=== PATIENT | female | born 1945 | race Caucasian/White ===

== ENCOUNTER → 2021-03-02 | Outpatient (CLI) | payer MEDICARE, OTHER | LOC: KOH-I 13:43 | DX: D72.819 Decreased white blood cell count, unspecified (principal); N28.9 Disorder of kidney and ureter, unspecified; N20.0 Calculus of kidney; L98.8 Other specified disorders of the skin and subcutaneous tissue | CPT/HCPCS: 74176 ==

== ENCOUNTER → 2022-02-04 | Outpatient (CLI) | payer MEDICARE, OTHER | LOC: US 09:56 | DX: N64.4 Mastodynia (principal) | CPT/HCPCS: 76641-LT ==

== ENCOUNTER 2022-05-19 12:57 | Inpatient (IN) | payer MEDICARE, OTHER ==
[~2022-05-19] VITALS: Ht 165.1 cm; Wt 54.4 kg
[2022-05-19 13:37] LABS: HEMOGLOBIN 8.3 gm/dl (12.3-15.3); RED BLOOD COUNT 2.83 M/UL (4.00-5.10); WHITE BLOOD COUNT 8.2 K/UL (4.5-11.0)
[2022-05-19] MEDS ORDERED: CARBIDOPA-LEVO1 EA14 PO (16:29)
[2022-05-19] MEDS ORDERED: MECLIZINE HCL12.5 MG PO (16:29)
[2022-05-19] MEDS ORDERED: FENOFIBRATE160 MG PO (16:30)
[2022-05-19] MEDS ORDERED: CYANOCOBAL1000 MCG/1 INJ (16:31)
[2022-05-19] MEDS ORDERED: AMLODIPINE BESYL5 MG PO (16:31)
[2022-05-19] MEDS ORDERED: FLONASE 0.05% N16 GM (16:35)
[2022-05-19] MEDS ORDERED: MIRALAX 119 GR119 GM PO (16:36)
[2022-05-19] MEDS ORDERED: NARCAN4 MG (16:38)
[2022-05-19] MEDS ORDERED: LOSARTAN POTASS50 MG PO (16:42)
[2022-05-19] MEDS ORDERED: OXYBUTYNIN CHLOR5 MG PO (16:42)
[2022-05-19] MEDS ORDERED: CITALOPRAM HBR40 MG PO (16:43)
[2022-05-19] MEDS ORDERED: HYDROCHLOROTH12.5 MG PO (16:43)
[2022-05-19] MEDS ORDERED: LEVOTHYROXINE112 MCG PO (16:44)
[2022-05-19] MEDS ORDERED: POTASSIUM CHLO20 ME1 PO (16:44)
[2022-05-19] MEDS ORDERED: HYDROCODON-ACE1 EAC6 PO (16:45)
[2022-05-19] MEDS ORDERED: FAMOTIDINE20 MG PO (16:45)
[2022-05-19] MEDS ORDERED: DIAZEPAM2 MG PO (16:46)
[2022-05-20 02:30] LABS: HEMOGLOBIN 7.8 gm/dl (12.3-15.3); RED BLOOD COUNT 2.65 M/UL (4.00-5.10); WHITE BLOOD COUNT 6.6 K/UL (4.5-11.0)
[2022-05-20 14:48] LABS: CANDIDA ALBICANS Not Detected (Negative); CANDIDA KRUSEI Not Detected (Negative); CANDIDA TROPICALIS Not Detected (Negative); ESCHERICHIA COLI Not Detected (Negative); HAEMOPHILUS INFLUENZAE Not Detected (Negative); KLEBSIELLA OXYTOCA Not Detected (Negative); KLEBSIELLA PNEUMONIAE Not Detected (Negative); KPC-CARBAPENEM-RESISTANCE GENE Not Detected (Negative); PROTEUS Not Detected (Negative); PSEUDOMONAS AERUGINOSA Not Detected (Negative); SERRATIA MARCESANS Not Detected (Negative); STAPHYLOCOCCUS AUREUS Not Detected (Negative); STREP AGALACTIAE (GROUP B) Not Detected (Negative); STREP PYOGENES (GROUP A) Not Detected (Negative); STREPTOCOCCUS Not Detected (Negative); vanA/B (VANCOMYCIN RESIST GENE Not Detected (Negative)
[2022-05-20 16:30] LABS: STAPHYLOCOCCUS DETECTED (Negative)
--- NOTE | 2022-05-20 16:35 | NUR ---
PATIENT'S REQUESTING TO KNOW WHAT IMAGING WAS COMPLETED ON HIS MOTHER UPON ARRIVAL TO THE EMERGENCY ROOM OR AFTER ADMISSION. INFORMED MR. NARVAEZ THAT A SHOULDER AND ANKLE X-RAY WAS COMPLETED WELL A RENAL ULTRASOUND AND A HEAD, CHEST, CERVICAL SPINE, ABDOMEN AND PELVIS CT SCAN. PATIENT'S [id number] STATED "OH! SO THEY PRETTY MUCH SCANNED EVERYTHING THEN."
[2022-05-21 02:19] LABS: HEMOGLOBIN 8.2 gm/dl (12.3-15.3); RED BLOOD COUNT 2.76 M/UL (4.00-5.10); WHITE BLOOD COUNT 5.5 K/UL (4.5-11.0)
[2022-05-22 07:16] LABS: HEMOGLOBIN 7.4 gm/dl (12.3-15.3); RED BLOOD COUNT 2.53 M/UL (4.00-5.10); WHITE BLOOD COUNT 5.1 K/UL (4.5-11.0)
[2022-05-23 02:08] LABS: HEMOGLOBIN 7.5 gm/dl (12.3-15.3); RED BLOOD COUNT 2.52 M/UL (4.00-5.10)
[2022-05-24 06:44] LABS: HEMOGLOBIN 7.2 gm/dl (12.3-15.3); RED BLOOD COUNT 2.47 M/UL (4.00-5.10); WHITE BLOOD COUNT 5.9 K/UL (4.5-11.0)
[2022-05-24 15:25] LABS: HEMOGLOBIN 6.7 gm/dl (12.3-15.3)
[2022-05-25 06:52] LABS: WHITE BLOOD COUNT 6.3 K/UL (4.5-11.0)
[2022-05-25 06:54] LABS: HEMOGLOBIN 8.7 gm/dl (12.3-15.3); RED BLOOD COUNT 2.93 M/UL (4.00-5.10)
[2022-05-26 06:42] LABS: HEMOGLOBIN 8.6 gm/dl (12.3-15.3); RED BLOOD COUNT 2.91 M/UL (4.00-5.10); WHITE BLOOD COUNT 6.2 K/UL (4.5-11.0)
[2022-05-26] MEDS ORDERED: DIAZEPAM2 MG PO (12:48)
[2022-05-26] MEDS ORDERED: HYDROCODON-ACE1 EAC6 PO (12:48)
[2022-05-26] MEDS ORDERED: MAGNESIUM OXID400 M1 PO (12:52)
[2022-05-26] MEDS ORDERED: PROTONIX40 MG PO (12:59)
--- NOTE | 2022-05-26 15:25 | NUR ---
RN ATTEMPTED TO CALL REPORT TO ACCEPTING FACILITY AND DISCOVERED PATIENT HAS NOT HAD A BOWEL MOVEMENT SINCE April. RN INFORMED RECEIVING NURSE SHE WOULD NOTIFY MD AND ATTEMPT TO FACILITATE BOWEL MOVEMENT IN PATIENT. PATIENT AND FAMILY MADE AWARE OF SITUATION.
[2022-05-26] MEDS ORDERED: MIRALAX17 GM PO (15:37)
[2022-05-26] MEDS ORDERED: SENNA PLUS TAB1 EACH PO (15:37)
--- NOTE | 2022-05-26 16:55 | NUR ---
PATIENT'S FAMILY STATED PATIENT HAD A BOWEL MOVEMENT YESTERDAY DURING PHYSICAL THERAPY THAT WAS NOT DOCUMENTED. PATIENT STATED SHE WALKED TO BEDSIDE COMMODE AND HAD A BOWEL MOVEMENT WITH ASSIST. MD MADE AWARE, ORDERED RN TO CONTINUE WITH DISCHARGE.
--- NOTE | 2022-05-26 17:09 | NUR ---
REPORT CALLED TO TIEN AT [facility].
--- NOTE | 2022-05-26 18:20 | NUR ---
REQUEST FOR TRANSFER CALLED TO [facility].
--- NOTE | 2022-05-26 21:51 | NUR ---
CALL WAS MADE TO [facility] REQUESTED PER FAMILY AND DAYSHIFT RN IF [facility] WAS NOT HERE TO TRANSPORT PATIENT BY 9 PM. [facility] SAID THEY COULD NOT TRANSPORT PATIENT TO [place].
[2022-05-27 07:03] LABS: HEMOGLOBIN 7.7 gm/dl (12.3-15.3); WHITE BLOOD COUNT 6.9 K/UL (4.5-11.0)
[2022-05-27 07:04] LABS: RED BLOOD COUNT 2.59 M/UL (4.00-5.10)
--- NOTE | 2022-05-27 07:44 | NUR ---
contact was made with [facility] for transport update. stated it would be after shift change.
--- NOTE | 2022-05-27 08:27 | NUR ---
ems here to take pt to [facility]
== END 2022-05-27 08:00 | DRG 682 ==
LOC: ER1 12:57 → CDU 15:18 → M/S 15:18
PROVIDERS: Family Medicine; Internal Medicine; Internal Medicine Hematology & Oncology; Internal Medicine Nephrology; Physician Assistant; Physician Assistant Medical; ADMIT Internal Medicine
PROC: 30233N1 Transfusion of Nonautologous Red Blood Cells into Peripheral Vein, Percutaneous Approach (ICD-10-PCS; principal; 2022-05-24)
DX: N17.9 Acute kidney failure, unspecified (principal); G93.41 Metabolic encephalopathy; E87.0 Hyperosmolality and hypernatremia; N39.0 Urinary tract infection, site not specified; M62.82 Rhabdomyolysis; D61.818 Other pancytopenia; D64.9 Anemia, unspecified; F02.80 Dementia in other diseases classified elsewhere, unspecified severity, without behavioral disturbance, psychotic disturbance, mood disturbance, and anxiety; Z20.822 Contact with and (suspected) exposure to COVID-19; E86.0 Dehydration; E03.9 Hypothyroidism, unspecified; N28.1 Cyst of kidney, acquired; I12.9 Hypertensive chronic kidney disease with stage 1 through stage 4 chronic kidney disease, or unspecified chronic kidney disease; L89.326 Pressure-induced deep tissue damage of left buttock; L89.892 Pressure ulcer of other site, stage 2; L89.896 Pressure-induced deep tissue damage of other site; N18.32 Chronic kidney disease, stage 3b; G30.9 Alzheimer's disease, unspecified; E83.42 Hypomagnesemia; E87.6 Hypokalemia; L89.226 Pressure-induced deep tissue damage of left hip; L89.519 Pressure ulcer of right ankle, unspecified stage; W01.0XXA Fall on same level from slipping, tripping and stumbling without subsequent striking against object, initial encounter; D46.9 Myelodysplastic syndrome, unspecified; Z79.899 Other long term (current) drug therapy
CPT/HCPCS: 36415; 36430; 36600; 51702; 70450; 70551; 71250; 72125; 73030; 73610; 74018; 80048; 80053; 80202; 80307; 81001; 82009; 82550; 82553; 82607; 82728; 82746; 82803; 82805; 83540; 83550; 83605; 83690; 83735; 84133; 84300; 84439; 84443; 84484; 85014; 85018; 85025; 85027; 85610; 86850; 86900; 86901; 86920; 87040; 87077; 87150; 87186; 92526; 92610; 93005; 96361; 96374; 97162; 97530; 97530-GP-CQ; 99285; C9113; G0480; J0696; J1650; J3370; J3420; J3475; J7070; P9016; P9047; U0002